=== PATIENT | female | born 1975 | race Two or more races ===

== ENCOUNTER 2016-12-30 09:57 | Emergency (ER) | payer MEDICAID ==
[~2016-12-30] VITALS: Ht 167.6 cm; Wt 65.8 kg
[2016-12-30 10:25] VITALS: BP 128/77
[2016-12-30 10:45] LABS: Urine Bilirubin Negative (Negative); Urine Blood Negative /uL (Negative); Urine Color Yellow (Yellow); Urine Glucose Normal (Normal); Urine Ketone Negative (Negative); Urine Mucus FEW (None Seen); Urine Nitrite Negative (Negative); Urine RBC <1 /hpf (0 - 4); Urine Squamous Epithelial Cell MOD /hpf (<5); Urine Urobilinogen Normal (Negative)
[2016-12-30] MEDS ORDERED: cefTRIAXone SOD 1,000 MG VL IM ONE (12:00)
== END 2016-12-30 12:54 | disposition home or self-care (01) ==
LOC: ER 09:57
DX: N39.0 Urinary tract infection, site not specified (principal); R06.02 Shortness of breath
CPT/HCPCS: 81001; 81025; 96372; 99284; J0696